=== PATIENT | male | born 1990 | race Caucasian/White ===

== ENCOUNTER 2016-09-22 23:11 | Emergency (ER) | payer OTHER ==
[~2016-09-22] VITALS: Ht 175.3 cm; Wt 91.6 kg
[2016-09-22 23:12] VITALS: BP 159/92
[2016-09-22] MEDS ORDERED: LIDOCAINE 1%, 20ML ONE (23:59)
[2016-09-23] MEDS ORDERED: LIDOCAINE 1%, 10ML INFIL ONE
[2016-09-23] MEDS ORDERED: LIDOCAINE 1%, 20ML INFIL ONE
== END 2016-09-23 00:40 | disposition home or self-care (01) ==
LOC: ED 09-23 00:34
DX: L03.116 Cellulitis of left lower limb (principal); L02.416 Cutaneous abscess of left lower limb
CPT/HCPCS: 10060